=== PATIENT | male | born 1955 | race Caucasian/White ===

== ENCOUNTER 2022-03-08 14:02 | Inpatient (IN) ==
[2022-03-08 15:45] LABS: Magnesium 1.9 mg/dL (1.9-2.7)
[2022-03-08 15:58] LABS: High Sensitivity Troponin 1 Hr 18 pg/mL (<20)
[2022-03-08] MEDS ORDERED: Magnesium Sulfate 2 gm BAG 2 GM/50 ML BAG IVPB ONE (16:42)
[2022-03-08] MEDS ORDERED: Potassium Chloride LIQUID 20 MEQ/15 ML LIQUID PO ONE (16:50)
[2022-03-08] MEDS ORDERED: Furosemide 40 mg/4 ml IV VIAL IV ONE (17:33)
[2022-03-08] MEDS ORDERED: Dextrose 50% Syringe 50 ml 25 GM/50 ML SYRINGE IV PUSH PRN (17:35)
[2022-03-08] MEDS: Metoprolol Tartrate 5 mg VIAL 5 ml VIAL (1 mg/ml) IV PRN (23:34)
[2022-03-09] MEDS: Metoprolol Tartrate 5 mg VIAL 5 ml VIAL (1 mg/ml) IV PRN (01:32)
[2022-03-09 06:14] LABS: Hematocrit 49 % (42-52); Hemoglobin 15.9 g/dL (14.0-18.0); Mean Corpuscular HGB Conc 32 g/dL (31-36); Mean Corpuscular Hemoglobin 31 pg (27-31); Mean Corpuscular Volume 97 fL (80-94); Mean Platelet Volume 9.5 fL (7.4-10.4); Platelet Count 229 10^3/uL (150-450); Red Blood Count 5.09 10^6 /uL (4.18-5.48); Red Cell Distribution Width 15 % (10-15); White Blood Count 10.9 10^3/uL (3.5-10.8)
[2022-03-09 06:35] LABS: Albumin 3.6 g/dL (3.2-5.2); Albumin/Globulin Ratio 1.4 (1-3); Globulin 2.5 g/dL (2-4); Potassium 4.1 mmol/L (3.5-5.0); Total Bilirubin 0.7 mg/dL (0.2-1.0); Total Protein 6.1 g/dL (6.4-8.9)
[2022-03-09 06:58] LABS: ABS Lymphocytes 0.9 10^3/ul (1.0-4.8); Eosinophil % 0.3 %; Lymphocyte % 8.2 %; Nucleated Red Blood Cells % 0.1
[2022-03-09] MEDS ORDERED: Metoprolol Tartrate 5 mg VIAL 5 ml VIAL (1 mg/ml) IV ONE (09:25)
[2022-03-09] MEDS ORDERED: Furosemide 20 mg/2 ml IV VIAL IV SLOW PU ONE (09:31)
[2022-03-09] MEDS: dilTIAZem 30 MG TAB PO SCH ×3 (12:15→22:28)
[2022-03-10] MEDS: dilTIAZem 30 MG TAB PO SCH (05:42)
[2022-03-10 05:56] LABS: ABS Basophils 0.1 10^3/ul (0-0.2); ABS Monocytes 0.9 10^3/ul (0-0.8); ABS Neutrophils 9.1 10^3/ul (1.5-7.7); Eosinophil % 0.3 %; Hematocrit 49 % (42-52); Lymphocyte % 9.1 %; Mean Corpuscular HGB Conc 33 g/dL (31-36); Mean Corpuscular Hemoglobin 31 pg (27-31); Mean Corpuscular Volume 96 fL (80-94); Mean Platelet Volume 9.7 fL (7.4-10.4); Platelet Count 224 10^3/uL (150-450); Red Blood Count 5.11 10^6 /uL (4.18-5.48); Red Cell Distribution Width 15 % (10-15); White Blood Count 11.2 10^3/uL (3.5-10.8)
[2022-03-10 06:12] LABS: Magnesium 1.9 mg/dL (1.9-2.7); eGFR CKD-EPI 95.8 (>60)
[2022-03-10] MEDS ORDERED: dilTIAZem 30 MG TAB PO ONE (07:15)
[2022-03-10] MEDS ORDERED: Albuterol HFA INHALER 8 gm MDI INH PRN (08:54)
[2022-03-10] MEDS ORDERED: Magnesium Sulfate 2 gm BAG 2 GM/50 ML BAG IVPB ONE (10:00)
[2022-03-10] MEDS ORDERED: Potassium Chlor 10 meq TAB PO ONE (13:42)
[2022-03-10] MEDS ORDERED: Potassium Chloride LIQUID 20 MEQ/15 ML LIQUID PO ONE (13:42)
[2022-03-10] MEDS ORDERED: Potassium Chlor 20 meq TAB.ER PO ONE (14:30)
[2022-03-11 07:33] LABS: Blood Urea Nitrogen 23 mg/dL (6-24); CO2 Carbon Dioxide 26 mmol/L (22-32); Calcium 9.3 mg/dL (8.6-10.3); Chloride 100 mmol/L (101-111); Glucose 130 mg/dL (70-100); Sodium 137 mmol/L (135-145); eGFR CKD-EPI 102.1 (>60)
[2022-03-11 07:41] LABS: Anion Gap 11 mmol/L (2-11)
[2022-03-11 09:04] LABS: Magnesium 2.1 mg/dL (1.9-2.7); Potassium Redraw 4.8 mmol/L (3.5-5.0)
[2022-03-12 05:59] LABS: ABS Basophils 0.1 10^3/ul (0-0.2); ABS Lymphocytes 0.9 10^3/ul (1.0-4.8); ABS Monocytes 0.8 10^3/ul (0-0.8); ABS Neutrophils 8.1 10^3/ul (1.5-7.7); Eosinophil % 0.4 %; Hematocrit 50 % (42-52); Hemoglobin 16.4 g/dL (14.0-18.0); Lymphocyte % 9.3 %; Mean Corpuscular HGB Conc 33 g/dL (31-36); Mean Corpuscular Hemoglobin 31 pg (27-31); Mean Corpuscular Volume 95 fL (80-94); Mean Platelet Volume 9.5 fL (7.4-10.4); Nucleated Red Blood Cells % 0.1; Platelet Count 214 10^3/uL (150-450); Red Blood Count 5.26 10^6 /uL (4.18-5.48); Red Cell Distribution Width 15 % (10-15); White Blood Count 9.9 10^3/uL (3.5-10.8)
[2022-03-12 06:25] LABS: Calcium 9.2 mg/dL (8.6-10.3); eGFR CKD-EPI 100.3 (>60)
[2022-03-12] MEDS ORDERED: Potassium Chlor 20 meq TAB.ER PO ONE (17:27)
[2022-03-13 06:44] LABS: Calcium 8.9 mg/dL (8.6-10.3); Magnesium 1.9 mg/dL (1.9-2.7); Potassium 4.3 mmol/L (3.5-5.0); eGFR CKD-EPI 97.6 (>60)
[2022-03-13] MEDS ORDERED: Senna TAB 8.6 mg TAB PO PRN (14:31)
[2022-03-13] MEDS ORDERED: Polyethylene Glycol 3350 17 GM PACKET PO PRN (14:31)
[2022-03-13] MEDS ORDERED: Magnesium Hydroxide LIQ 30 ML UDC PO PRN (14:31)
[2022-03-13] MEDS: Magnesium Hydroxide LIQ 30 ML UDC PO SCH (19:53)
[2022-03-14 06:06] LABS: ABS Lymphocytes 1.1 10^3/ul (1.0-4.8); ABS Monocytes 0.8 10^3/ul (0-0.8); ABS Neutrophils 9.8 10^3/ul (1.5-7.7); Eosinophil % 0.4 %; Hematocrit 50 % (42-52); Hemoglobin 16.7 g/dL (14.0-18.0); Lymphocyte % 9.2 %; Mean Corpuscular HGB Conc 34 g/dL (31-36); Mean Corpuscular Hemoglobin 32 pg (27-31); Mean Corpuscular Volume 95 fL (80-94); Mean Platelet Volume 9.1 fL (7.4-10.4); Nucleated Red Blood Cells % 0.1; Platelet Count 212 10^3/uL (150-450); Red Cell Distribution Width 15 % (10-15); White Blood Count 11.7 10^3/uL (3.5-10.8)
[2022-03-14 06:52] LABS: Calcium 9.2 mg/dL (8.6-10.3); Potassium 4.5 mmol/L (3.5-5.0); eGFR CKD-EPI 98.4 (>60)
[2022-03-14] MEDS: Magnesium Hydroxide LIQ 30 ML UDC PO SCH ×2 (10:29→21:11)
[2022-03-15 06:40] LABS: ABS Monocytes 0.8 10^3/ul (0-0.8); ABS Neutrophils 9.1 10^3/ul (1.5-7.7); Eosinophil % 0.3 %; Hematocrit 48 % (42-52); Lymphocyte % 8.9 %; Mean Corpuscular HGB Conc 33 g/dL (31-36); Mean Corpuscular Hemoglobin 32 pg (27-31); Mean Corpuscular Volume 95 fL (80-94); Mean Platelet Volume 9.6 fL (7.4-10.4); Platelet Count 223 10^3/uL (150-450); Red Blood Count 5.08 10^6 /uL (4.18-5.48); Red Cell Distribution Width 15 % (10-15); White Blood Count 10.9 10^3/uL (3.5-10.8)
[2022-03-15 06:56] LABS: Calcium 9.1 mg/dL (8.6-10.3); Magnesium 2.1 mg/dL (1.9-2.7); Potassium 4.3 mmol/L (3.5-5.0); eGFR CKD-EPI 96.5 (>60)
[2022-03-15] MEDS: Magnesium Hydroxide LIQ 30 ML UDC PO SCH ×3 (08:11→22:30)
[2022-03-16 06:19] LABS: ABS Lymphocytes 1.2 10^3/ul (1.0-4.8); ABS Monocytes 0.9 10^3/ul (0-0.8); ABS Neutrophils 9.9 10^3/ul (1.5-7.7); Eosinophil % 0.2 %; Hematocrit 50 % (42-52); Hemoglobin 16.3 g/dL (14.0-18.0); Lymphocyte % 9.8 %; Mean Corpuscular HGB Conc 33 g/dL (31-36); Mean Corpuscular Hemoglobin 32 pg (27-31); Mean Corpuscular Volume 96 fL (80-94); Mean Platelet Volume 9.3 fL (7.4-10.4); Nucleated Red Blood Cells % 0.1; Platelet Count 215 10^3/uL (150-450); Red Blood Count 5.19 10^6 /uL (4.18-5.48); Red Cell Distribution Width 15 % (10-15)
[2022-03-16 06:37] LABS: Blood Urea Nitrogen 28 mg/dL (6-24); CO2 Carbon Dioxide 27 mmol/L (22-32); Calcium 8.8 mg/dL (8.6-10.3); Chloride 105 mmol/L (101-111); Glucose 141 mg/dL (70-100); Sodium 140 mmol/L (135-145); eGFR CKD-EPI 104.4 (>60)
[2022-03-16 06:53] LABS: Anion Gap 8 mmol/L (2-11)
[2022-03-16 07:59] LABS: Magnesium 1.9 mg/dL (1.9-2.7); Potassium Redraw 4.1 mmol/L (3.5-5.0)
[2022-03-16] MEDS: Magnesium Hydroxide LIQ 30 ML UDC PO SCH ×2 (08:23→20:11)
[2022-03-16] MEDS ORDERED: Magnesium Sulfate IV 1GM/100ML 1 GM/100 ML BAG IV ONE (08:48)
[2022-03-16] MEDS ORDERED: Diltiazem Infusion @ 5 MG/HR - (MEDTELE ONLY, no titration) IV SCH (10:30)
[2022-03-17 06:11] LABS: ABS Neutrophils 10.2 10^3/ul (1.5-7.7); Eosinophil % 0.2 %; Hematocrit 50 % (42-52); Hemoglobin 16.5 g/dL (14.0-18.0); Lymphocyte % 8.4 %; Mean Corpuscular HGB Conc 33 g/dL (31-36); Mean Corpuscular Hemoglobin 32 pg (27-31); Mean Corpuscular Volume 96 fL (80-94); Mean Platelet Volume 8.7 fL (7.4-10.4); Platelet Count 218 10^3/uL (150-450); Red Blood Count 5.19 10^6 /uL (4.18-5.48); Red Cell Distribution Width 14 % (10-15); White Blood Count 12.4 10^3/uL (3.5-10.8)
[2022-03-17 06:49] LABS: Calcium 8.9 mg/dL (8.6-10.3); Magnesium 2.2 mg/dL (1.9-2.7); Potassium 4.5 mmol/L (3.5-5.0); eGFR CKD-EPI 94.5 (>60)
[2022-03-17] MEDS: Magnesium Hydroxide LIQ 30 ML UDC PO SCH (09:32)
[2022-03-17 12:24] VITALS: BP 126/72
== END 2022-03-17 15:50 | disposition home or self-care (01) | DRG 309 ==
LOC: ED 14:02 → EDHOLD 14:02 → MEDTELE 18:06 → SUATTDRO 03-09 13:58
PROVIDERS: ADMIT Hospitalist; ATTEND Hospitalist